=== PATIENT | female | born 1955 | race Caucasian/White ===

== ENCOUNTER 2018-07-16 07:53 | Emergency (ER) | payer OTHER ==
[~2018-07-16] VITALS: Ht 165.1 cm; Wt 72.6 kg
[~2018-07-16 07:53] MED LIST: GLUMETZA1000 MG; HUMULIN 70/30 V10 ML; IOPHEN DM-100 MG/5 M PO; LEVAQUIN750 MG PO; Septra Ds Tablet PO; Theo-24 PO
[2018-07-16] MEDS ORDERED: LIPITOR20 MG PO (08:01)
[2018-07-16] MEDS ORDERED: PROMETHAZINE W473 ML PO (12:02)
[2018-07-16] MEDS ORDERED: TESSALON PERLE100 M1 PO (12:02)
== END 2018-07-16 13:49 | disposition home or self-care (01) ==
LOC: ER 07:53
DX: J06.9 Acute upper respiratory infection, unspecified (principal)

== ENCOUNTER 2019-05-14 16:42 | Emergency (ER) | payer OTHER ==
[~2019-05-14] VITALS: Ht 160 cm; Wt 83.9 kg
[~2019-05-14 16:42] MED LIST changes: +LIPITOR20 MG PO; +PROMETHAZINE W473 ML PO; +TESSALON PERLE100 M1 PO
[2019-05-14] MEDS ORDERED: MEDROLPACK PO (20:34)
[2019-05-14] MEDS ORDERED: TUSNEL LIQUID178 ML PO (20:34)
[2019-05-14] MEDS ORDERED: AMOX-CLAV 875-1 EACH PO (20:34)
== END 2019-05-14 21:05 | disposition home or self-care (01) ==
LOC: ER 16:42
DX: R05 Cough (principal); J20.9 Acute bronchitis, unspecified

== ENCOUNTER 2024-05-29 13:43 | Inpatient (IN) | payer OTHER ==
[~2024-05-29] VITALS: Ht 160 cm; Wt 78.0 kg
[~2024-05-29 13:43] MED LIST changes: +AMOX-CLAV 875-1 EACH PO; +MEDROLPACK PO; +TUSNEL LIQUID178 ML PO
--- NOTE | 2024-05-29 14:24 | NUR ---
PTE ALERTA Y ORIENTADA X3 REFIERE VENIR A DORA DEBIDO A QUE LA MISMA TIENE REFERIDO MEDICO PARA DESCARTAR POSIBLE BRONQUITIS Y/O PNEUMONIA. PTE CON TOS SECA PRODUCTIVA. SE MIDEN S/V Y SE UBICA.
[2024-05-29] MEDS ORDERED: IPRATROPIUM BROMIDE 0.5 MG/2.5 ML AMPUL.NEB IH SCH (16:30)
[2024-05-29] MEDS ORDERED: LEVALBUTEROL HCL 1.25 MG/3 ML SOLUTION IH SCH (16:30)
[2024-05-29] MEDS ORDERED: BUDESONIDE 0.5 MG/2 ML AMPUL.NEB IH ONE (16:30)
--- NOTE | 2024-05-29 16:49 | NUR ---
ANGUS ORIENTA A PTE SOBRE TX MEDICO ORDENADO POR IZABELA. REALIZA BARBARA DE MUESTRAS DE LAB YOHANA ORDEN MEDICA Y BAJO MEDIDAS ASEPTICAS. VENOPUNCION PATENTE PAPO DE EDEMA Y ERITEMA. PTE PENDIENTE A ESTUDIO Y TERAPIAS, SE NOTIFICAN
[2024-05-29 16:59] LABS: HEMATOCRIT 42.2 % (36.0-45.00); HEMOGLOBIN 13.7 g/dL (12.0-15.00); MEAN CELL VOLUME 91.6 fL (80.00-100.00); MEAN CORPUSCULAR HEMOGLOBIN 29.7 pg (27.00-32.0); MEAN CORPUSCULAR HGB CONC 32.4 g/dl (32.0-36.0); PLATELET COUNT 270 K/uL (150-450); RED BLOOD COUNT 4.61 M/uL (4.00-6.00); RED CELL DISTRIBUTION WIDTH 14.4 % (11.5-14.5)
[2024-05-29 17:59] LABS: ALBUMIN 3.8 gm/dL (3.4-5.0); BILIRUBIN TOTAL 0.42 mg/dL (0.3-1.2); CALCIUM 9.5 mg/dL (8.5-10.1); CREATININE SERUM 0.87 mg/dL (0.55-1.02); GFR 64.37; GLOBULINA 3.5 G/DL (2.4-3.5); POTASSIUM 4.85 mEq/L (3.5-5.1); TOTAL PROTEIN 7.3 gm/dL (6.4-8.2)
[2024-05-29] MEDS ORDERED: MAGNESIUM SULFATE 2,000 MG in 0.9 % SODIUM CHLORIDE 100 ML IV ONE (18:45)
[2024-05-29] MEDS ORDERED: GUAIFENESIN/DEXTROMETHORPHAN 10ML BLIST.PACK PO ONE ×2 (19:00→19:20)
[2024-05-29] MEDS ORDERED: MAGNESIUM SULFATE 50% 1,000 MG/2 ML VIAL ONE (19:20)
[2024-05-29] MEDS ORDERED: 0.9 % SODIUM CHLORIDE 1,000 ML IV SCH (21:15)
[2024-05-29] MEDS ORDERED: INSULIN LISPRO 1,000 UNIT/10 ML UNITS SUBCUTANEO PRN (21:30)
[2024-05-29] MEDS ORDERED: ACETAMINOPHEN 500 MG GEL..CAP PO PRN (21:30)
[2024-05-29] MEDS ORDERED: DEXTROSE 50 % IN WATER 0.5 G/ML DISP.SYRIN IV PRN (21:30)
[2024-05-29] MEDS ORDERED: AZITHROMYCIN 500 MG VIAL IV SCH (21:31)
[2024-05-29 22:09] LABS: ABG PH 7.417 (7.35-7.45)
[2024-05-29 22:10] LABS: ABG PO2 68.5 mmHg (80-100); ABG pCO2 40.3 mmHg (35-45); BASE EXCESS 0.8 mmol/l; BICARBONATE 25.3 mmol/l (23-25); SaO2 93.8 %; Tco2 26.6 mmol/l; allen test SATISFACTORY; o2 21 %; puncture site RADIAL RIGHT
[2024-05-29 23:00] VITALS: BP 142/81; O2SAT 95
[2024-05-30] MEDS ORDERED: GUAIFENESIN/DEXTROMETHORPHAN 10ML BLIST.PACK PO SCH
[2024-05-30] MEDS ORDERED: METHYLPREDNISOLONE SOD SUCC 40 MG VIAL IV SCH
[2024-05-30] MEDS ORDERED: IPRATROPIUM BROMIDE 0.5 MG/2.5 ML AMPUL.NEB IH SCH ×2 (01:00)
[2024-05-30] MEDS ORDERED: ALBUTEROL SULFATE 3 ML/2.5 MG AMPUL.NEB IH SCH ×2 (01:00)
[2024-05-30 03:26] VITALS: BP 137/75; O2SAT 89
[2024-05-30] MEDS ORDERED: LEVOTHYROXINE SODIUM 25 MCG TABLET PO SCH (06:00)
[2024-05-30 08:32] VITALS: BP 126/84
[2024-05-30] MEDS ORDERED: INSULIN GLARGINE,HUM.REC.ANLOG 1,000 UNITS/10 ML UNITS SUBCUTANEO SCH (09:00)
[2024-05-30] MEDS ORDERED: LOSARTAN POTASSIUM 25 MG TABLET PO SCH (09:00)
[2024-05-30] MEDS ORDERED: CEFTRIAXONE SODIUM 2,000 MG in 0.9 % SODIUM CHLORIDE 100 ML IV SCH (09:00)
[2024-05-30] MEDS ORDERED: FAMOTIDINE/PF 20 MG/2 ML VIAL IV SCH (09:00)
[2024-05-30] MEDS ORDERED: ENOXAPARIN SODIUM 40 MG/0.4 ML SYRINGE SUBCUTANEO SCH (11:57)
[2024-05-30] MEDS ORDERED: ACETYLCYSTEINE 200 MG/ML 30ML VIAL IH SCH (12:00)
[2024-05-30] MEDS ORDERED: ATORVASTATIN CALCIUM 40 MG TABLET PO SCH (17:00)
[2024-05-30 17:39] VITALS: BP 138/72
[2024-05-31 02:10] VITALS: BP 127/82; O2SAT 93
[2024-05-31 08:46] VITALS: BP 112/65; O2SAT 94
[2024-05-31] MEDS ORDERED: IPRATROPIUM BROMIDE 0.5 MG/2.5 ML AMPUL.NEB IH SCH (13:00)
[2024-05-31 16:03] VITALS: BP 122/71
[2024-06-01 00:26] VITALS: BP 131/75; O2SAT 97
[2024-06-01 08:31] VITALS: BP 133/74; O2SAT 95
[2024-06-01 17:26] VITALS: BP 140/71; O2SAT 98
[2024-06-02 00:44] VITALS: BP 143/80; O2SAT 97
[2024-06-02 08:42] VITALS: BP 155/75; O2SAT 95
[2024-06-02 17:38] VITALS: BP 136/74; O2SAT 95
[2024-06-02] MEDS ORDERED: CODEINE PHOSPHATE/GUAIFENESIN 5 ML ML PO SCH (21:00)
[2024-06-03 01:40] VITALS: BP 157/72; O2SAT 98
[2024-06-03 09:17] VITALS: BP 157/77; O2SAT 95
[2024-06-03] MEDS ORDERED: METHYLPREDNISOLONE SOD SUCC 40 MG VIAL IV SCH (12:00)
[2024-06-03 17:45] VITALS: BP 146/77; O2SAT 97
[2024-06-04 00:44] VITALS: BP 151/87; O2SAT 93
== END 2024-06-04 14:07 | disposition home or self-care (01) | DRG 195 ==
LOC: ER 13:45 → MEDI 23:27
PROVIDERS: General Practice; ADMIT Internal Medicine; ATTEND Internal Medicine
PROC: BB24ZZZ Computerized Tomography (CT Scan) of Bilateral Lungs (ICD-10-PCS; principal; 2024-05-29)
PROC: 3E0F7GC Introduction of Other Therapeutic Substance into Respiratory Tract, Via Natural or Artificial Opening (ICD-10-PCS; 2024-05-30)
DX: J18.0 Bronchopneumonia, unspecified organism (principal); J18.9 Pneumonia, unspecified organism; J45.909 Unspecified asthma, uncomplicated; I10 Essential (primary) hypertension; E11.9 Type 2 diabetes mellitus without complications; E03.9 Hypothyroidism, unspecified; Z79.4 Long term (current) use of insulin